=== PATIENT | male | born 1950 | race Hispanic/Latino ===

== ENCOUNTER → 2018-04-30 | Outpatient (CLI) | payer MEDICARE ==
[~2018-04-30] VITALS: Ht 175.3 cm; Wt 86.2 kg
[~2018-04-30] MED LIST: ASPRIN PO; BUSP5TAB3 PO; CITA40TA6 PO; CLOP75TA32 PO; ISOS30TA6 PO; LOSA100T29 PO; METO1TAB42 PO; NICA20CA4 PO; NITR0.4T50 SL; PANT40TA25 PO; REGADENOSON 0.4 MG/5 ML PF SYG IVP SCH; TAMS0.4C32 PO
== END | disposition home or self-care (01) ==
LOC: SHCH 08:12
PROVIDERS: ATTEND Internal Medicine Cardiovascular Disease
DX: I10 Essential (primary) hypertension (principal); I67.9 Cerebrovascular disease, unspecified; I25.10 Atherosclerotic heart disease of native coronary artery without angina pectoris
CPT/HCPCS: 78452; 93017; 96374; A9500 ×2; J2785

== ENCOUNTER → 2019-02-22 | Outpatient (CLI) | payer OTHER ==
[~2019-02-22] VITALS: Ht 175.3 cm; Wt 83.9 kg
[~2019-02-22] MED LIST changes: -LOSA100T29 PO; +LOSA100T58 PO; +REGADENOSON 0.4 MG/5 ML PF SYG IVP ONE
== END | disposition home or self-care (01) ==
LOC: SHCH 12:11
PROVIDERS: ATTEND Internal Medicine Cardiovascular Disease
DX: I25.9 Chronic ischemic heart disease, unspecified (principal); I25.10 Atherosclerotic heart disease of native coronary artery without angina pectoris
CPT/HCPCS: 78452; 93017; 96374; A9500 ×2; J2785

== ENCOUNTER → 2021-06-07 | Outpatient (CLI) | payer OTHER ==
[~2021-06-07] MED LIST changes: -ISOS30TA6 PO; +ISOS30TA92 PO; -PANT40TA25 PO; +PANT40TA54 PO; -REGADENOSON 0.4 MG/5 ML PF SYG IVP ONE; -REGADENOSON 0.4 MG/5 ML PF SYG IVP SCH
== END | disposition home or self-care (01) ==
LOC: SHCH 07:31
PROVIDERS: ATTEND Internal Medicine Cardiovascular Disease
DX: I77.1 Stricture of artery (principal); I77.811 Abdominal aortic ectasia
CPT/HCPCS: 93978

== ENCOUNTER → 2021-10-14 | Outpatient (CLI) | payer OTHER ==
[~2021-10-14] MED LIST changes: +CITA-108 PO; -CITA40TA6 PO
== END | disposition home or self-care (01) ==
LOC: SLP 20:35
PROVIDERS: ATTEND Family Medicine
DX: G47.33 Obstructive sleep apnea (adult) (pediatric) (principal)
CPT/HCPCS: 95810

== ENCOUNTER → 2022-01-04 | Outpatient (CLI) | payer OTHER | END | disposition home or self-care (01) | LOC: RAH 15:25 | PROVIDERS: ATTEND Urology | DX: N20.0 Calculus of kidney (principal); K56.41 Fecal impaction; M47.819 Spondylosis without myelopathy or radiculopathy, site unspecified | CPT/HCPCS: 74018; 76100 ==

== ENCOUNTER → 2022-03-16 | Outpatient (CLI) | payer OTHER | END | disposition home or self-care (01) | LOC: SLP 20:17 | PROVIDERS: ATTEND Family Medicine | DX: G47.33 Obstructive sleep apnea (adult) (pediatric) (principal) | CPT/HCPCS: 95811 ==

== ENCOUNTER → 2023-11-19 | Outpatient (CLI) | payer OTHER ==
[~2023-11-19] MED LIST changes: -LOSA100T58 PO; +LOSA100T59 PO
== END | disposition home or self-care (01) ==
LOC: SHCH 15:01
PROVIDERS: ATTEND Internal Medicine Cardiovascular Disease
DX: G45.1 Carotid artery syndrome (hemispheric) (principal)
CPT/HCPCS: 93880

== ENCOUNTER → 2024-12-15 | Outpatient (CLI) | payer OTHER ==
[~2024-12-15] MED LIST changes: +IOHEXOL 350 MG/ML 100ML INFUS..BTL IV ONE; +IOHEXOL-350 50ML VIAL IV ONE
--- NOTE | 2024-12-16 11:41 | HMCIMG ---
CT ANGIO ABD AORTA W RUNOFF HISTORY: Peripheral vascular disease COMPARISON: None TECHNIQUE: CT angiography of the abdomen and pelvis and bilateral lower extremities was obtained using angiographic technique with maximum intensity projection reconstruction images. Patient was given 150 cc of Omnipaque through intravenous route. Oral contrast was not given. FINDINGS: No pleural effusion is seen bilaterally. There is no evidence of parenchymal disease or pulmonary nodule of the visualized lower lungs. Degenerative changes of the thoracolumbar spine are present. The heart is not enlarged. Postcholecystectomy changes are seen. There is left hepatic cyst measuring 2 cm. The liver, spleen, adrenal glands and pancreas are unremarkable. There is no evidence of hydronephrosis bilaterally. No evidence of renal stone is seen. Fecal material is seen in the colon. There are normal size retroperitoneal and mesenteric lymph nodes. No ascites is seen. Atherosclerotic changes are present. There is diffuse atherosclerotic disease. There appears to be distal abdominal aortic stenosis with the enhancing lumen measuring 6 mm x 13 mm. No evidence of abdominal aortic aneurysm is seen. The celiac, superior mesenteric and bilateral renal arteries are grossly patent. The visualized portion of the iliac and femoral arterial systems are also grossly patent. The popliteal, posterior tibial and peroneal arteries are grossly patent. There are occlusions of the anterior tibial arteries at their origins bilaterally. Pelvic sidewalls are symmetric bilaterally. Bladder is well distended without wall thickening. IMPRESSION: 1. There appears to be distal abdominal aortic stenosis with the enhancing lumen measuring 6 mm x 13 mm. Findings suspicious for occlusion of the anterior tibial arteries bilaterally at their origins. CT was performed with one or more following dose reduction techniques: automated exposure control, adjustment of the mA and kv according to patient's size, or use of a iterative reconstruction technique.
== END | disposition home or self-care (01) ==
LOC: RAH 09:34
PROVIDERS: ATTEND Internal Medicine Cardiovascular Disease
DX: K76.89 Other specified diseases of liver (principal); I70.8 Atherosclerosis of other arteries; I73.9 Peripheral vascular disease, unspecified; M47.815 Spondylosis without myelopathy or radiculopathy, thoracolumbar region; Z90.49 Acquired absence of other specified parts of digestive tract; Z98.890 Other specified postprocedural states
CPT/HCPCS: 75635; Q9967 ×2

== ENCOUNTER 2025-02-09 08:36 | Day surgery (SDC) | payer OTHER ==
--- NOTE | 2025-02-07 12:01 | EKG ---
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1950 Requested By: ARMANDO JOSE Order Number: [id number] Reading MD: Barbie Hinkle Measurements Intervals [place] Rate: 52 P: -10 RI: 253 QRS: -19 QRSD: 98 T: 112 QT: 461 QTc: 429 Interpretive Statements Sinus rhythm Prolonged RI interval Nonspecific repol abnormality, lateral leads Compared to ECG 08/22/2017 06:50:09 First degree AV block now present Sinus bradycardia no longer present Left-axis deviation no longer present Left ventricular hypertrophy no longer present Electronically Signed On 02-07-2025 14:10:22 CDT by Barbie Hinkle Please click the below link to view image of tracing.
[2025-02-07 12:12] VITALS: BP 137/70; PULSE 55; RESP 19; TEMP 97.5
[2025-02-07 12:16] LABS: BASOPHILS # (AUTO) 0.03 K/uL (0.00-0.20); BASOPHILS % (AUTO) 0.4 % (0.0-5.0); EOSINOPHILS # (AUTO) 0.07 K/uL (0.00-0.70); EOSINOPHILS % (AUTO) 0.9 % (0.0-8.0); HEMATOCRIT 39.5 % (42-54); IMMATURE GRANULOCYTE ABSOLUTE 0.12 K/uL (0-1); LYMPHOCYTES # (AUTO) 1.5 K/uL (1.0-4.8); LYMPHOCYTES % (AUTO) 19.3 % (21.0-51.0); MEAN CORPUSCULAR HEMOGLOBIN 31.1 pg (27.0-33.0); MEAN CORPUSCULAR HGB CONC 33.4 g/dL (32.0-36.0); MEAN CORPUSCULAR VOLUME 93.2 fL (79-99); MONOCYTES # (AUTO) 0.6 K/uL (0.1-1.0); MONOCYTES % (AUTO) 7.7 % (3.0-13.0); NEUTROPHILS # (AUTO) 5.4 K/uL (1.8-7.7); NEUTROPHILS % (AUTO) 70.1 % (40.0-77.0); PLATELET COUNT (AUTO) 152 K/uL (130-400); RED BLOOD CELL COUNT(AUTO) 4.24 MIL/uL (4.50-6.20); RED CELL DISTRIBUTION WIDTH 13.5 % (11.0-15.5); WHITE BLOOD COUNT (AUTO) 7.7 K/uL (4.8-10.8)
[2025-02-07 12:30] LABS: CREATININE 0.7 mg/dL (0.5-1.3); POTASSIUM 4.1 mmol/L (3.5-5.1)
[2025-02-07 12:35] LABS: INR 1.06 (0.85-1.15); PROTHROMBIN TIME 11.2 SEC (9.6-11.6)
[2025-02-07 12:37] LABS: PARTIAL THROMBOPLASTIN TIME 24.3 SEC (26.3-35.5)
[2025-02-07 14:23] LABS: B-TYPE NATRIURETIC PEPTIDE 121 pg/mL (0-100)
[~2025-02-09] VITALS: Ht 177.8 cm; Wt 83.2 kg
[2025-02-09] VITALS (10 sets, daily range): BP systolic 112–134; BP diastolic 51–63; PULSE 43–87; RESP 11–18; TEMP 97.3–98.2
[~2025-02-09 08:36] MED LIST changes: +AMLO-258 PO; -ASPRIN PO; -CITA-108 PO; +EZET10TA48 PO; -IOHEXOL 350 MG/ML 100ML INFUS..BTL IV ONE; -IOHEXOL-350 50ML VIAL IV ONE; -ISOS30TA92 PO; -NICA20CA4 PO; -NITR0.4T50 SL; +RANO10005 PO; +ROSU5TAB51 PO; -TAMS0.4C32 PO
[2025-02-09] MEDS: 0.9%NACL 1000ML 1,000 ML IV SCH (09:30)
[2025-02-09] MEDS ORDERED: METO-391 PO (09:40)
[2025-02-09] MEDS ORDERED: EZET10TA48 PO (09:40)
[2025-02-09] MEDS ORDERED: ROSU10TA72 PO (09:40)
[2025-02-09] MEDS ORDERED: BUPR100T13 PO (09:40)
[2025-02-09] MEDS ORDERED: BUSP5TAB3 PO (09:40)
[2025-02-09] MEDS ORDERED: DICL100G60 TP (09:40)
[2025-02-09] MEDS ORDERED: IODIXANOL 320 MG/ML 100 ML VIAL ONE (10:01)
[2025-02-09] MEDS ORDERED: LIDOCAINE HCL 400MG/20ML VIAL ONE (10:01)
[2025-02-09] MEDS ORDERED: HEParin-NS 1,000 UNIT/500 ML 1,000 ML IV ONE (10:01)
[2025-02-09] MEDS ORDERED: NITROGLYCERIN 50MG VIAL ONE (10:02)
[2025-02-09] MEDS ORDERED: FENTanyl CITRate PF 50 MCG/1 ML 2ML VIAL ONE (10:17)
[2025-02-09] MEDS ORDERED: MIDAZOLAM HCL 1 MG/ML 2ML VIAL ONE (10:18)
[2025-02-09] MEDS ORDERED: HEParin 10,000 UNIT/10ML (1,000 UNIT/ML) VIAL ONE (10:22)
[2025-02-09] MEDS ORDERED: cloPIDOgrel 300MG TAB ONE (11:15)
[2025-02-09] MEDS ORDERED: ASPIRIN 325MG EC TAB PO ONE (11:15)
[2025-02-09] MEDS ORDERED: HEParin-NS 1,000 UNIT/500 ML 500 ML IV ONE (11:37)
[2025-02-09] MEDS ORDERED: 0.9%NACL 1000ML 1,000 ML IV SCH (12:30)
--- NOTE | 2025-02-09 12:53 | PRN ---
Procedure:Peripheral Angiogram Procedure Note Procedure Note: Peripheral Angiogram Date of Service: 02/09/2025 Referring Physician: Dr. Armando Muir Procedures Performed: Lower abdominal aortogram, peripheral angiogram with lower extremity arterial runoff, peripheral angiogram via 0.018 Navicross catheter, balloon lithotripsy and drug coated balloon angioplasty of the distal left superficial femoral artery and distal left popliteal artery Indications for Procedure: PAD, Dodge category 3 symptoms affecting the bilateral lower extremities Description of Procedure: [After informed consent was obtained the patient was prepped and draped in the usual sterile fashion a 6 Trinidadian arterial sheath with a hemostatic valve was inserted into the right common femoral artery using a modified Salinger technique on the first pass front wall puncture. A 5 Trinidadian Omni Flush catheter was then advanced over a soft angled Glidewire into the abdominal aorta and a lower abdominal aortogram with runoff was obtained. The findings are listed below. The Omni flush catheter was then advanced to the left common femoral artery in the left lower extremity arteriogram was obtained. The findings are listed below.] Findings: Distal abdominal aorta: patent, with aneurysmal formation Right common iliac artery: There is a undersized stent, with 70% ISR seen in the ostial and proximal segments of the artery. There is aneurysmal formation seen around the stent Right external iliac artery: patent Right internal iliac artery: patent Right common femoral artery: patent Left common iliac artery: 70% stenosis with significant aneurysm formation seen in the proximal, mid, and distal segments of the artery Left external iliac artery: patent Left internal iliac artery: 90% stenosis seen in the mid segment of the artery Left common femoral artery: patent Left profunda artery: patent Left superficial femoral artery: 100% stenosis (KITCHEN [employer] BATH DESIGNER=60 mm) in the distal segment of the artery. The artery reconstitutes distally via collateral blood flow Left popliteal artery: 80% stenosis in the distal segment of the artery Left anterior tibial artery: 100% stenosis (KITCHEN AND BATH DESIGNER>200 mm) in the proximal SHOBHA. The artery does not reconstitute distally. Left tibioperoneal artery: patent Left peroneal artery: patent Left posterior tibial artery: patent Pedal arch: Incomplete, with slow two-vessel runoff supplying the anterior and posterior segments of the left pedal arch. Intervention: After reviewing the above-mentioned findings the decision was made to intervene on the left superficial femoral artery in the left popliteal artery. The soft angled Glidewire was inserted into the Omni flush catheter and was advanced to the mid left superficial femoral artery. We then removed the Omni flush catheter and exchanged the short six Trinidadian arterial sheath for a 65 cm six Trinidadian destination arterial sheath, which was then placed in the mid left superficial femoral artery. We then administered heparin 75 units/kg, clopidogrel 600 mg x 1 dose and aspirin 325 mg x 1 dose. We then advanced a 0.018 command 18 guidewire and 0.018 Navicross catheter across the areas stenosis and into the distal left popliteal artery. We then removed the command 18 guidewire and injected contrast through the catheter to ensure that were in the true lumen. Once this was confirmed, we advanced a 0.014 run-through guidewire into the distal left peroneal artery. We then removed the Navicross catheter and performed balloon lithotripsy (shockwave 5.0 x 60 mm) in the distal left popliteal artery and distal left superficial femoral artery. We then performed drug coated balloon angioplasty (Medtronic inpact 4.0 x 40 mm) in the distal left popliteal artery and (Medtronic inpact 6.0 x 150 mm) in the distal left superficial femoral artery. The balloons were then removed and repeat angiography was performed, which revealed widely patent arteries, without significant dissection, or perforation, and brisk two vessel runoff supplying the left foot/pedal arch. The 0.014 run-through guidewire and 65 cm six Trinidadian destination arterial sheath were then removed and the arteriotomy site in the right common femoral artery was successfully closed using a six Trinidadian Angio- Seal device. The patient tolerated the procedure well and without issue. Estimated Blood Loss: [30]mL Complications: [ None] Conclusion: 1. PAD, Dodge category 3 symptoms, 100% stenosis in the distal left superficial femoral artery and 80% stenosis in the distal left popliteal artery status post successful treatment with balloon lithotripsy and drug coated balloon angioplasty, resulting in widely patent arteries, without significant dissection, or perforation, and brisk two vessel runoff supplying the left foot/pedal arch 2. 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 Previous right common iliac artery stent placement by Dr. Islas in [place], [place] 4. HTN 5. HLP 6. DM2 7. CAD s/p 4V CABG in 2005 8. Ischemic CVA in 2009 Recommendations/Instructions: 1. Continue Goal-directed medical therapy. 2. Continue Aspirin 81 mg daily and Plavix 75 mg daily for 1 month. 3. Groin precautions 4. 4 hours of bedrest after the arterial sheaths are pulled 5. The patient will be admitted for overnight observation. 6. Repeat BMP and CBC in the AM 7. If the groins are free of significant bruising and hematoma formation, then we will discharge the patient in the AM ARMANDO MUIR MD Feb 09, 2025 12:53
--- NOTE | 2025-02-09 14:09 | NUR ---
URINARY: VOIDED 280 CC YELLOW COLOR URINE PER URINAL WITHOUT DIFFICULTY.
--- NOTE | 2025-02-09 15:02 | NUR ---
report: hand off communication given to moraima munson rn
== END 2025-02-09 16:40 | disposition home or self-care (01) ==
LOC: DAH 08:36
PROVIDERS: ATTEND Internal Medicine Cardiovascular Disease
DX: E11.51 Type 2 diabetes mellitus with diabetic peripheral angiopathy without gangrene (principal); I70.213 Atherosclerosis of native arteries of extremities with intermittent claudication, bilateral legs; I10 Essential (primary) hypertension; E78.5 Hyperlipidemia, unspecified; F32.A Depression, unspecified; F41.9 Anxiety disorder, unspecified; I25.10 Atherosclerotic heart disease of native coronary artery without angina pectoris; E66.9 Obesity, unspecified; N40.0 Benign prostatic hyperplasia without lower urinary tract symptoms; Z98.890 Other specified postprocedural states; Z88.8 Allergy status to other drugs, medicaments and biological substances; Z68.27 Body mass index [BMI] 27.0-27.9, adult; Z79.899 Other long term (current) drug therapy; Z79.82 Long term (current) use of aspirin; Z95.1 Presence of aortocoronary bypass graft; Z86.73 Personal history of transient ischemic attack (TIA), and cerebral infarction without residual deficits; Z95.820 Peripheral vascular angioplasty status with implants and grafts; Z79.01 Long term (current) use of anticoagulants
CPT/HCPCS: 80048; 83880; 85025; 85610; 85730; 36415; 93005; 75630; 85347; 82948; C9764; C1725; C1894 ×2; C1769 ×4; C1887; C1760; C2623 ×2; C1893; J3010; J3490 ×2; J7030; J1644 ×3; J2250; Q9967; A4215; A4335; A4222; A4221; A4663; A4216; A4606; A4223 ×3; 75625; 75716; 96360; 96361; 99156; 99157